=== PATIENT | male | born 1945 | race Caucasian/White ===

== ENCOUNTER → 2016-12-12 15:37 | Outpatient (CLI) | payer MEDICARE, OTHER ==
[~2016-12-12 15:37] MED LIST: BAYER CHEWABLE81 MG PO; ISOSORBIDE MONO30 M1 PO; KRILL OIL 1,001 EAC1 PO; LOPRESSOR25 MG PO; NORVASC5 MG PO; OMEPRAZOLE20 M1 PO; PLAVIX75 MG PO; ZOCOR40 MG PO
[2016-12-14 10:17] LABS: HEPATITIS C ANTIBODY <0.1 (0.0-0.9)
[2016-12-25 08:30] VITALS: BMI 35.3
== END | disposition home or self-care (01) ==
LOC: D.LAB 15:30 → D.US 16:00
PROVIDERS: Internal Medicine Cardiovascular Disease
DX: Z01.812 Encounter for preprocedural laboratory examination (principal); R01.1 Cardiac murmur, unspecified; I65.23 Occlusion and stenosis of bilateral carotid arteries

== ENCOUNTER 2016-12-18 07:50 | Outpatient (CLI) | payer MEDICARE, OTHER ==
--- NOTE | ~2016-12-18 | HEMODYNAMI ---
PATIENT:JOSE FERREIRA MEDICAL RECORD: [id number] : 47 LOCATION:D.CAT ADMISSION DATE: 12/18/16 Generatedon:12/18/201610:58 Patient name: JOSE FERREIRA Patient #: [id number] SSN: : 1945 Date of study: 12/18/2016 Page: Of Hemodynamic Procedure Report Patient Data Patient Demographics Procedure consent was obtained First Name: JOSE Gender: Male Last Name: HANNA : 1945 [facility] Initial: TERESA Age: 71 year(s) Patient #: [id number] Race: Unknown Additional ID: [id number] Contact details [address]: [address] [place] [address] State: [place] City: [place] Zip code: [address] Past Medical History Allergies Allergen Reaction Date Comments Reported Other allergy 12/18/2016 [facility] Admission Admission Data Admission Date: 12/18/2016 Admission Time: 7:50 Admit Source: Other Lab Results Lab Result Date: 12/18/2016 Lab Result Time: 8:40 Biochemistry Name Units Result Min Max BUN mg/dl 15 --(--*-)-- 7 18 Creatinine mg/dl 1 --(--*-)-- 0.6 1.3 CBC Name Units Result Min Max Hematocrit % 37.6 *-(----)-- 42 54 Hemoglobin g/dl 13.3 -*(----)-- 13.5 17.5 Procedure Procedure Types Cath Procedure Diagnostic Procedure LHC Coronaries only Miscellaneous Procedures Moderate Sedation up to 15 minutes Procedure Description Procedure Date Procedure Date: 12/18/2016 Procedure Start Time: 10:45 Procedure End Time: 10:56 Procedure Staff Name Function Jerry Wilson MD Performing Physician Valerie Curry RT Scrub Timmy Ayoub RN Nurse Cliff Urbano RT Monitor Procedure Data Cath Procedure Fluoroscopy Diagnostic fluoroscopy Total fluoroscopy Time: 2 time: 2 min min Diagnostic fluoroscopy Total fluoroscopy dose: 747 dose: 747 mGy mGy Contrast Material Contrast Material Type Amount (ml) Isovue 300 59 Entry Location Entry Primary Successful Side Size Upsize Upsize Entry Closure Phillips ccessful Closure Location (Fr) 1 (Fr) 2 (Fr) Remarks Device Remarks Radial Right 6 Fr Mechanical artery Short Compression Estimated blood loss: 5 ml Diagnostic catheters Device Type Used For End Catheter Placement Diagnostic Terumo 5Fr Procedure [place] 110cm catheter Diagnostic Infinity 5Fr Procedure AR 2 MOD catheter Procedure Complications No complications Procedure Medications Medication Administration Route Dosage 0.9% NaCl I.V. 100 ml/hr Oxygen NC 2 l/min Heparin Flush Bag added to field 2 bags (1000units/500ml NS) Lidocaine 2% added to field 20 Versed I.V. 1 mg Fentanyl I.V. 50 mcg Radial Cocktail added to field 1 syringe (Verapomil 2mg/Nitro 400mcg/Heparin 1500units) Radial Cocktail I.A. 1 syringe (Verapomil 2mg/Nitro 400mcg/Heparin 1500units) Hemodynamics Rest HGB: 13.3 (g/dl) Heart Rate: 76 (bpm) Snapshots Pre Cath Intra NCS Post Cath Vital Signs Time Heart Resp SPO2 etCO2 NIBP (mmHg) Rhythm Pain Sedation Rate (ipm) (%) (mmHg) Status Level (bpm) 10:35:26 78 18 96 26.2 125/73(102) NSR 0 (11) 10(A) , No pain 10:40:05 78 16 93 1.5 120/70(95) NSR 0 (11) 10(A) , No pain 10:44:42 77 15 95 10.5 114/68(87) NSR 0 (11) 10(A) , No pain 10:49:18 81 16 92 27.7 105/72(90) NSR 0 (11) 9(A) , No pain 10:54:27 79 14 95 0 107/72(93) NSR 0 (11) 9(A) , No pain Medications Time Medication Route Dose Verified Delivered Reason Notes Effectiveness by by 10:34:18 0.9% NaCl I.V. 100 Timmy Timmy Per ml/hr Anitra Ayoub physician RN RN 10:34:29 Oxygen NC 2 l/min Timmy Timmy Per Anitra Ayoub physician [place] RN 10:34:54 Heparin Flush added 2 bags Timmy Timmy used for Bag to Anitra Ayoub procedure (1000units/500ml field RN RN NS) 10:35:09 Lidocaine 2% added 20ml Timmy Timmy for local to vial Anitra Ayoub anesthetic field RN RN 10:44:41 Versed I.V. 1 mg Timmy Timmy for sedation Anitra Ayoub RN RN 10:44:53 Fentanyl I.V. 50 mcg Timmy Timmy for sedation Anitra Ayoub RN RN 10:45:05 Radial Cocktail added 1 Timmy Timmy for (Verapomil to syringe Anitra Ayoub vasodilation 2mg/Nitro field RN RN 400mcg/Heparin 1500units) 10:48:09 Radial Cocktail I.A. 1 Timmy Jerry for (Verapomil syringe Anitra Wilson MD vasodilation 2mg/Nitro RN 400mcg/Heparin 1500units) Procedure Log Time Note 10::59 Informed consent obtained and on chart 10:09:03 Admit Source: Other 10:09:49 Diagnostic Cath status Elective 10::52 Cliff Urbano RT(R) sent for patient. Start room use. 10::53 Time tracking: Regular hours ::59 Plan of Care:Hemodynamics will remain stable., Cardiac rhythm will remain stable., Comfort level will be maintained., Respiratory function will remain adequate., Patient/ family verbilizes understanding of procedure., Procedure tolerated without complication., Recovers from procedure without complications.. 10:25:52 Patient received from Pre/Post Procedure Room to CCL 1 Alert and oriented. Tansferred to table in Supine position. 10:25:54 Warm blankets applied, and cesar hugger turned on for patient comfort. 10:25:54 Correct patient and procedure confirmed by team. 10:25:56 ECG and BP/O2 sat monitors applied to patient. 10:34:18 0.9% NaCl 100 ml/hr I.V. was administered by Timmy Ayoub RN; Per physician; 10:34:29 Oxygen 2 l/min NC was administered by Timmy Ayoub RN; Per physician; 10:34:37 Vital chart was started 10:34:54 Heparin Flush Bag (1000units/500ml NS) 2 bags added to field was administered by Timmy Ayoub RN; used for procedure; 10:35:09 Lidocaine 2% 20ml vial added to field was administered by Timmy Ayoub RN; for local anesthetic; 10:39:48 Baseline sample Acquired. 10:39:52 Rhythm: sinus rhythm 10:40:04 H&P Date Dictated: 12/18/2016 New H&P dictated by physician.. 10:40:06 Pre-procedure instructions explained to patient. 10:40:06 Pre-op teaching completed and patient verbalized understanding. 10:40:08 Family in waiting room. 10:40:09 Patient NPO since Midnight. 10:40:18 Patient allergic to Other allergyniacin 10:40:20 Is the patient allergic to Iodine/contrast media? No. 10:40:21 Is patient on blood thinner?No 10:40:22 Patient diabetic? No. 10:40:25 Previous problem with sedation/anesthesia? No ? 10:40:26 Snore? Yes 10:40:27 Sleep apnea? Yes 10:40:28 Deviated septum? No 10:40:29 Opens mouth fully? Yes 10:40:31 Sticks out tongue? Yes 10:40:35 Airway obstruction? No ? 10:40:37 Dentures? No ? 10:40:40 Modified Sukumar's test Ulnar < 7 seconds 10:40:42 Patient pain scale 0/10 ?. 10:40:47 IV patent on arrival in left hand with 0.9% NaCl at [facility]. 10:41:23 Lab Result : Creatinine 1 mg/dl 10:41:23 Lab Result : BUN 15 mg/dl 10:41:23 Lab Result : Hemoglobin 13.3 g/dl 10:41:23 Lab Result : Hematocrit 37.6 % 10:41:26 Lab results completed and on chart. 10:41:28 Right Radial & Right Groin area was prepped with chlora-prep and draped in sterile fashion 10:41:29 Alarms reviewed by R. N. 10:41:30 Sharps counted by scrub and verified by R.N. 10:41:32 Use device set Radial Dx 10:41:33 MBrace Wrist Support opened to sterile field. 10:41:34 Acist Manifold opened to sterile field. 10:41:34 Acist Hand Control opened to sterile field. 10:41:35 Tegaderm 4 x 4 opened to sterile field. 10:41:36 Acist Syringe opened to sterile field. 10:41:36 Medline Cath Pack opened to sterile field. 10:41:36 Bag Decanter opened to sterile field. 10:41:37 Terumo 6Fr Slender Glidesheath opened to sterile field. 10:41:37 St Jason 260cm J .035 wire opened to sterile field. 10:41:43 Physician arrived 10::44 --------ALL STOP TIME OUT------ 10::44 Final Timeout: patient, procedure, and site verified with staff and physician. All members of the team are in agreement. 10::44 Final Timeout: patient, procedure, and site verified with staff and physician. All members of the team are in agreement. 10:41:46 Right Radial & Right Groin site verified by team. 10:41:49 Physical assessment completed. ASA score P 2 - A patient with mild systemic disease as per Jerry Wilson MD. 10:41:52 Sedation plan: IV Moderate Sedation Versed, Fentanyl 10:43:52 Zero performed for pressure channel P1 10:44:41 Versed 1 mg I.V. was administered by Timmy Ayoub RN; for sedation; 10:44:53 Fentanyl 50 mcg I.V. was administered by Timmy Ayoub RN; for sedation; 10:45:05 Radial Cocktail (Verapomil 2mg/Nitro 400mcg/Heparin 1500units) 1 syringe added to field was administered by Timmy Ayoub RN; for vasodilation; 10:45:45 Procedure started. 10:45:45 Full Disclosure recording started 10:45:56 Local anesthetic to right radial artery with Lidocaine 2% by Jerry Wilson MD.INITIAL ACCESS ONLY 10:46:06 A 6 Fr Short sheath was inserted into the Right Radial artery 10:47:37 A Diagnostic Terumo 5Fr [place] 110cm catheter was advanced over the wire and used for Procedure. 10:48:09 Radial Cocktail (Verapomil 2mg/Nitro 400mcg/Heparin 1500units) 1 syringe I.A. was administered by Jerry Wilson MD; for vasodilation; 10:48:20 LCA angiography performed. 10:50:23 Catheter exchanged over wire. 10:50:35 A Diagnostic Infinity 5Fr AR 2 MOD catheter was advanced over the wire and used for Procedure. 10:51:58 RCA angiography performed. 10:52:23 Catheter removed. 10:52:41 Terumo TR Band Standard opened to sterile field. 10:52:49 Sheath removed intact; hemostasis achieved with Mechanical Compression to the Right Radial artery. 10:52:51 Procedure ended.(Physican Out) 10:53:47 Fluoroscopy time 02.00 minutes. 10:53:50 Fluoroscopy dose: 747 mGy 10:53:50 Flurop Dose total: 747 10:53:55 Contrast amount:Isovue 300 59ml. 10:53:56 Sharps counted by scrub and verified by R.N. 10:53:59 TR band inflated with 9cc of air. 10:54:01 Insertion/operative site no bleeding no hematoma. 10:54:05 Post Procedure Pulses reassessed and unchanged 10:54:07 Post-procedure physical assessment completed. ASA score P 2 - A patient with mild systemic disease as per Jerry Wilson MD. 10:54:10 Post procedure rhythm: unchanged. 10:54:15 Estimated blood loss: 5 ml 10:54:17 Post procedure instruction explained to patient.Patient verbalizes understanding. 10:54:17 Patient needs reinforcement of post procedure teaching. 10:54:32 Procedure type changed to Cath procedure, Diagnostic procedure, LHC, Coronaries only, Miscellaneous Procedures, Moderate Sedation up to 15 minutes 10:56:25 Procedure and supply charges have been captured, reviewed, submitted and are correct. 10:56:27 Procedure Complication : No complications 10:56:30 Vital chart was stopped 10:56:31 See physician's report for complete and final results. 10:56:32 Report given to Pre/Post Procedure Room. 10:56:35 Patient transfered to Pre/Post Procedure Room with Stretcher. 10:56:37 Procedure ended. 10:56:37 Full Disclosure recording stopped 10:56:43 End room use (Document Last) Device Usage Item Name Manufacture Quantity Catalog Hospital Part Current Minimal Lot# / Number Charge Number Stock Stock Serial# Code [facility] 1 140-0250-00 213241 97500 [id number] 5 Wrist Vascular Support Dynamics Acist Acist 1 87334 [id number] 000154 [id number] 5 [employer] Inc Acist Hand Acist 1 21401 239074 622927 792928 5 Virtual Solutions Tegaderm 4 1 [id number] 272938 166248 5 x 4 Acist Acist 1 38199 842866 470816 615566 20 Syringe [employer] Inc Medline Cardinal 1 [id number] 991322 00822 694302 5 Cath Pack Health Bag Microtek 1 2002S 651767 80940 818739 5 [employer]an[employer] Terumo 6Fr Terumo 1 [id number] 796415 832585 105975 [address] [facility] 1 868716 552641 956415 419581 30 260cm J .035 wire Diagnostic Terumo 1 [id number] 756788 055295 713765 5 Terumo 5Fr [place] 110cm catheter Diagnostic Cardinal 1 [id number] 586698 557639 067391 20 [facility] 5Fr AR 2 MOD catheter Terumo TR Terumo 1 [id number] 234931 180639 047663 40 Band Standard Signature Audit [place] Stage Time Signature Unsigned Intra-Procedure 12/18/2016 Cliff Urbano 10:58:42 AM RT(R) Signatures Monitor : Cliff Urbano RT Signature : Date : Time : [id number] [place] [address]
[2016-12-18] MEDS ORDERED: ISOSORBIDE MONO30 M1 PO (08:34)
[2016-12-18] MEDS ORDERED: LOPRESSOR25 MG PO (08:35)
[2016-12-18] MEDS ORDERED: ZOCOR40 MG PO (08:35)
[2016-12-18] MEDS ORDERED: NORVASC5 MG PO (08:36)
[2016-12-18] MEDS ORDERED: OMEPRAZOLE20 M1 PO (08:37)
[2016-12-18] MEDS ORDERED: KRILL OIL 1,001 EAC1 PO (08:38)
[2016-12-18 08:45] VITALS: BP 117/80; BMI 35.3
[2016-12-18 08:53] LABS: HEMATOCRIT 37.6 % (42.0-54.0); HEMOGLOBIN 13.3 g/dL (13.5-17.5); LYMPHOCYTES 29.6 % (15-50); MCH 30.6 pg (26.0-34.0); MCHC 35.4 g/dL (31.0-37.0); MCV 86.4 fL (80.0-100.0); MEAN PLATELET VOLUME 8.4 fL (7.4-10.4); NEUTROPHILS 66.2 % (40-80); PLATELET COUNT 182 10x3/uL (130-400); RBC 4.35 10x6/uL (4.20-6.10); RDW 13.8 % (11.5-14.5)
[2016-12-18 09:03] LABS: CALC OSMOLALITY 279 mosm/kg (275-300); CALCIUM 9.2 mg/dL (8.5-10.1); CARBON DIOXIDE 24.3 mmol/L (21.0-32.0); CHLORIDE - SERUM 105 mmol/L (98-107); GLUCOSE 109 mg/dL (74-106); POTASSIUM - SERUM 3.6 mmol/L (3.5-5.1); SODIUM 139 mmol/L (136-145); UREA NITROGEN 15 mg/dL (7-18); eGFR NON AFRICAN AMERICAN 78 mL/min (90-120)
--- NOTE | 2016-12-18 11:20 | NUR ---
2L NC, NO RESP DISTRESS. RIGHT WRIST TR BAND CDI, NO BLEEDING OR HEMATOMA NOTED. NO C/O NAUSEA OR PAIN. INSTRUCTED PT TO KEEP WRIST STRAIGHT. VSS. FAMILY AT BEDSIDE, CALL LIGHT WITHIN REACH.
--- NOTE | 2016-12-18 11:50 | NUR ---
RIGHT WRIST TR BAND CDI, NO BLEEDING OR HEMATOMA NOTED. NO C/O NAUSEA OR PAIN. 2L NC, NO RESP DISTRESS. DRINK AND SANDWICH TRAY GIVEN. VSS. WILL CONTINUE TO MONITOR CLOSELY.
--- NOTE | 2016-12-18 12:05 | NUR ---
3CC OF AIR REMOVED FROM TR BAND, NO BLEEDING NOTED. NO C/O AT THIS TMIE. VSS. FAMILY AT BEDSIDE, CALL LIGHT WITHIN REACH.
--- NOTE | 2016-12-18 12:20 | NUR ---
3CC OF AIR REMOVED FROM TR BAND, NO BLEEDING NOTED.
--- NOTE | 2016-12-18 12:40 | NUR ---
2CC OF AIR REMOVED FROM TR BAND, NO BLEEDING NOTED. LEFT HAND PIV D/C'D WITH CATHETER INTACT, BAND AID TO SITE.
--- NOTE | 2016-12-18 12:48 | NUR ---
REMAINING AIR REMOVED FROM TR BAND, DRESSING PLACED TO SITE. DISCHARGE INSTRUCTIONS GIVEN, VERBALIZED UNDERSTANDING.
--- NOTE | 2016-12-18 13:00 | NUR ---
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 LEFT FACILITY WITH AND ALL PERSONAL BELONGINGS.
--- NOTE | 2016-12-29 14:14 | HP ---
PATIENT: JOSE DOMINGUEZ MEDICAL RECORD: [id number] ACCOUNT: [id number] LOCATION:IZAIAH : 47 ADMISSION DATE: 12/18/16 HISTORY AND PHYSICAL EXAMINATION DATE OF SERVICE: 12/18/2016 DIAGNOSES: 1. Angina. 2. Coronary artery disease. 3. Aortic stenosis. 4. Hypertension. 5. Hyperlipidemia. HISTORY OF PRESENT ILLNESS: Mr. Dominguez had progressive aortic stenosis, very symptomatic from the standpoint of the aortic stenosis, now for aortic valve replacement. We will proceed with cardiac catheterization prior to valve replacement for assessment of coronary artery disease. PHYSICAL EXAMINATION: GENERAL APPEARANCE: Well-nourished, well-developed, appears stated age. Level of distress, comfortable. PSYCHIATRIC: Mental status, alert, normal affect. Orientation, oriented to time, place and person. EYES: Lids and conjunctiva, noninjected. No discharge, no pallor. ENT: Lips, teeth, gums, normal dentition. Oropharynx, no cyanosis, no pallor. NECK: Carotid arteries, bilateral normal upstroke, no bruits, no thrills. JUGULAR VEINS: No jugular venous pressure or distention. CERVICAL LYMPH NODES: Nontender, nonenlarged. THYROID: Not enlarged. Nontender. No nodules. LUNGS: Respiratory effort, unlabored. CHEST: Normal curvature. No thoracic deformity. No chest wall tenderness. Percussion, resonant. Auscultation, clear. No wheezes, no rales, no rhonchi. CARDIOVASCULAR: Precordial exam, nondisplaced. No heaves or pericardial thrills. Rate and rhythm, regular. Heart sounds, normal S1, normal S2. No S3, no gallop, no rub. Systolic murmur, not heard. Diastolic murmur, not heard. EXTREMITIES: No cyanosis, no edema. Peripheral pulses, full and equal in all extremities, except as noted. No bruits appreciated. ABDOMEN: Soft, nondistended. Normal aorta. No bruit. Nontender. No masses. Liver, nontender, no hepatomegaly. Spleen, nontender, no splenomegaly. MUSCULOSKELETAL: No joint tenderness. No joint swelling. No erythema. NEUROLOGICAL: Normal gait, normal strength, normal tone. SKIN: Warm and dry. REVIEW OF SYSTEMS: The patient reports easy bruising but reports no swollen glands. The patient reports no fever, no night sweats, no significant weight gain, no significant weight loss. No significant exercise tolerance. The patient reports no dry eyes, no irritation, no vision change. Patient reports no difficulty hearing and no ear pain. Patient reports no frequent nose bleeds or nose and sinus problems. Patient reports on arm pain on exertion. No shortness of breath while lying down. No history of heart murmur. Patient reports no cough, no wheezing or coughing up blood. Patient reports no abdominal pain, no vomiting. Normal appetite. No diarrhea and not vomiting blood. No nausea and no constipation. Patient reports no incontinence. No difficulty urinating. No hematuria. No increased frequency. Patient reports HISTORY AND PHYSICAL [id number] JOSE DOMINGUEZ no muscle aches. No weakness, no arthralgias, no back pain. No swelling of the extremities. Patient reports no abnormal mole, no jaundice, no rashes. Reports no loss of consciousness. No weakness and no numbness. No seizures, dizziness, or headaches. The patient reports no depression, no sleep disturbance, feeling safe in a relationship and no alcohol abuse. Patient reports on fatigue. Reports no runny nose or sinus pressure. No itching, no hives, and no frequent sneezing. OVERALL IMPRESSION: Aortic stenosis for aortic valve replacement. We will proceed with coronary angiography. TRANSINT:[id number] Voice Confirmation ID: [id number] DOCUMENT ID: [id number] JUAN M REYNAGA MD at 1414 CC: [id number] DICTATION DATE: 12/18/16 1000 LOCK TENDER: 12/18/16 1033 [facility] CLI 12/18/16 [place] [id number]
--- NOTE | 2016-12-29 14:14 | OP ---
PATIENT NAME: JOSE FERREIRA MEDICAL RECORD: [id number] :47 LOCATION:D.CAT ADMISSION DATE: SURGEON: JUAN M REYNAGA MD DATE OF OPERATION: 12/18/2016 PROCEDURES: 1. Left heart catheterization. 2. Selective coronary angiography. INDICATION: Aortic stenosis for aortic valve replacement, coronary artery disease, and angina. PROCEDURE IN DETAIL: After informed consent was obtained and after detailed explanation of risks, benefits as well as alternative therapies, the patient elected to proceed with angiogram and heart catheterization. The right radial area was prepped and draped in normal sterile fashion. Right radial artery was cannulated via modified Seldinger technique with placement of 5-Turkish sheath. All catheters were exchanged through this sheath. FINDINGS: Left ventriculogram was not performed secondary to inability to cross the valve secondary to aortic stenosis. SELECTIVE CORONARY ANGIOGRAPHY: 1. Left main showed no significant angiographic disease. 2. Left anterior descending has 80% stenosis proximally. Previously placed stents are widely patent. There is an area between the stents suitable for grafting. 3. Left circumflex has 80+ percent stenosis of the first and second obtuse marginals, both have good lumen suitable for grafting. 4. Right coronary is totally occluded. Distal right coronary fills via right to right collaterals. Distal right coronary has a good lumen suitable for grafting. OVERALL IMPRESSION: Severe 3-vessel coronary artery disease. Evaluate for 3 to 4 vessel bypass. TRANSINT:[id number] Voice Confirmation ID: [id number] DOCUMENT ID: [id number] JUAN M REYNAGA MD at 1414 CC: [id number] DICTATION DATE: 12/18/16 1058 PROGRAM DIRECTOR GROUP WORK: 12/18/16 1143 [facility] CLI 12/18/16 [place] [id number]
== END 2016-12-18 13:00 | disposition home or self-care (01) ==
LOC: D.CATH 07:50
PROVIDERS: Internal Medicine Interventional Cardiology
DX: I25.119 Atherosclerotic heart disease of native coronary artery with unspecified angina pectoris (principal); I35.0 Nonrheumatic aortic (valve) stenosis; I10 Essential (primary) hypertension; E78.5 Hyperlipidemia, unspecified; Z01.812 Encounter for preprocedural laboratory examination

== ENCOUNTER 2016-12-22 08:02 | Outpatient (CLI) | payer MEDICARE, OTHER ==
--- NOTE | ~2016-12-22 | HEMODYNAMI ---
PATIENT:JOSE FERREIRA MEDICAL RECORD: [id number] : 47 LOCATION:[facility] ADMISSION DATE: 12/22/16 Generatedon:12/22/201610:21 Patient name: JOSE FERREIRA Patient #: [id number] SSN: : 1945 Date of study: 12/22/2016 Page: Of Hemodynamic Procedure Report Patient Data Patient Demographics Procedure consent was obtained First Name: JOSE Gender: Male Last Name: HANNA : 1945 [facility] Initial: TERESA Age: 71 year(s) Patient #: [id number] Race: Unknown Additional ID: [id number] Contact details Address: [address] [place] [address] State: [place] City: [place] Zip code: [address] Past Medical History Allergies Allergen Reaction Date Comments Reported Other allergy 12/18/2016 niacin Other allergy 12/22/2016 Niacin Admission Admission Data Admission Date: 12/22/2016 Admission Time: 8:02 Lab Results Lab Result Date: 12/18/2016 Lab Result Time: 8:40 Biochemistry Name Units Result Min Max BUN mg/dl 15 --(--*-)-- 7 18 Creatinine mg/dl 1 --(--*-)-- 0.6 1.3 CBC Name Units Result Min Max Hematocrit % 37.6 *-(----)-- 42 54 Hemoglobin g/dl 13.3 -*(----)-- 13.5 17.5 Procedure Procedure Types Cath Procedure PCI Procedure Coronary Stent Initial Miscellaneous Procedures Moderate Sedation up to 15 minutes Procedure Description Procedure Date Procedure Date: 12/22/2016 Procedure Start Time: 10:07 Procedure End Time: 10:21 Procedure Staff Name Function Jerry Wilson MD Performing Physician Cliff Urbano RT Scrub Timmy Ayoub RN Nurse Jed Joseph RT Monitor Valerie Curry RT Monitor Procedure Data Cath Procedure Fluoroscopy Diagnostic fluoroscopy Total fluoroscopy Time: 3.2 time: 3.2 min min Diagnostic fluoroscopy Total fluoroscopy dose: 397 dose: 397 mGy mGy Contrast Material Contrast Material Type Amount (ml) Isovue 300 53 Entry Location Entry Primary Successful Side Size Upsize Upsize Entry Closure Succes sful Closure Location (Fr) 1 (Fr) 2 (Fr) Remarks Device Remarks Femoral Right 7 Fr Exoseal artery Short Estimated blood loss: 10 ml Procedure Complications No complications Procedure Medications Medication Administration Route Dosage 0.9% NaCl I.V. 100 ml/hr Oxygen NC 2 l/min Heparin Flush Bag added to field 2 bags (1000units/500ml NS) Lidocaine 2% added to field 20 Versed I.V. 1 mg Fentanyl I.V. 50 mcg Heparin Bolus I.V. 5000 units Hemodynamics Rest HGB: 13.3 (g/dl) Heart Rate: 75 (bpm) Snapshots Pre Cath Intra NCS Post Cath Vital Signs Time Heart Resp SPO2 etCO2 NIBP (mmHg) Rhythm Pain Sedation Rate (ipm) (%) (mmHg) Status Level (bpm) 9:41:05 77 17 95 5.3 129/82(99) NSR 0 (11) 10(A) , No pain 9:45:41 80 14 98 21.2 129/88(103) NSR 0 (11) 10(A) , No pain 9:50:18 77 13 95 20.4 125/77(110) NSR 0 (11) 10(A) , No pain 9:54:52 79 18 96 0 127/81(103) NSR 0 (11) 10(A) , No pain 9:59:27 76 16 95 29.6 125/80(101) NSR 0 (11) 10(A) , No pain 10:04:06 81 18 96 6 124/80(93) NSR 0 (11) 10(A) , No pain 10:08:44 80 16 97 0 127/70(108) NSR 0 (11) 9(A) , No pain 10:13:22 80 15 97 0 128/75(96) NSR 0 (11) 9(A) , No pain 10:18:01 71 16 96 29.6 123/83(109) NSR 0 (11) 9(A) , No pain Medications Time Medication Route Dose Verified Delivered Reason Notes Effectiveness by by 9:43:41 0.9% NaCl I.V. 100 Timmy Timmy Per physician ml/hr Anitra Ayoub RN RN 9:43:57 Oxygen NC 2 Timmy Timmy Per physician l/min Anitra Ayoub RN RN 9:44:14 Heparin Flush added 2 Timmy Timmy used for Bag to bags Anitra Ayoub procedure (1000units/500ml field RN RN NS) 9:44:36 Lidocaine 2% added 20ml Timmy Timmy for local to vial Anitra Ayoub anesthetic field RN RN 10:00:00 Versed I.V. 1 mg Timmy Timmy for sedation Anitra Ayoub RN RN 10:00:16 Fentanyl I.V. 50 Timmy Timmy for sedation mcg Anitra Ayoub RN RN 10:09:50 Heparin Bolus I.V. 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 Start room use. 9:29:34 Time tracking: Regular hours 9:29:39 Plan of Care:Hemodynamics will remain stable., Cardiac rhythm will remain stable., Comfort level will be maintained., Respiratory function will remain adequate., Patient/ family verbilizes understanding of procedure., Procedure tolerated without complication., Recovers from procedure without complications.. 9:36:28 Patient received from Pre/Post Procedure Room to CCL 1 Alert and oriented. Tansferred to table in Supine position. 9:36:33 Warm blankets applied, and cesar hugger turned on for patient comfort. 9:36:34 Correct patient and procedure confirmed by team. 9:36:35 Signed procedure consent form obtained from patient. 9:36:36 ECG and BP/O2 sat monitors applied to patient. 9:40:16 Vital chart was started 9:43:41 0.9% NaCl 100 ml/hr I.V. was administered by Timmy Ayoub RN; Per physician; 9:43:50 Baseline sample Acquired. 9:43:57 Oxygen 2 l/min NC was administered by Timmy Ayoub RN; Per physician; 9:44:11 Rhythm: sinus rhythm 9:44:12 Full Disclosure recording started 9:44:14 Heparin Flush Bag (1000units/500ml NS) 2 bags added to field was administered by Timmy Ayoub RN; used for procedure; 9:44:32 H&P Date Dictated: 12/22/2016 Within 30 days and on chart., H&P Addendum completed by physician on day of procedure. (MUST COMPLETE FOR ALL OUTPATIENTS). 9:44:34 Pre-procedure instructions explained to patient. 9:44:35 Pre-op teaching completed and patient verbalized understanding. 9:44:36 Lidocaine 2% 20ml vial added to field was administered by Timmy Ayoub RN; for local anesthetic; 9:44:37 Family in waiting room. 9:44:39 Patient NPO since Midnight. 9:44:51 Patient allergic to Other allergyNiacin 9:44:55 Is the patient allergic to Iodine/contrast media? No. 9:44:58 Is patient on blood thinner?Yes 9:45:01 ACC The patient was administered the following blood thiners within the last 24 hours: ACCPlavix 9:45:03 Patient diabetic? No. 9:45:07 Previous problem with sedation/anesthesia? No ? 9:45:09 Snore? Yes 9:45:11 Sleep apnea? No 9:45:12 Deviated septum? No 9:45:14 Opens mouth fully? Yes 9:45:14 Sticks out tongue? Yes 9:45:17 Airway obstruction? No ? 9:45:19 Dentures? No ? 9:45:23 Pre procedure: right dorsailis pedis pulse 1+ Palpable, but thready & weak; easily obliterated 9:45:26 Patient pain scale 0/10 ?. 9:45:34 IV patent on arrival in left hand with 0.9% NaCl at O. 9:45:55 Lab results completed and on chart. 9:46:00 Right groin area was prepped with chlora-prep and draped in sterile fashion 9:46:01 Alarms reviewed by R. N. 9:46:02 Sharps counted by scrub and verified by R.N. 9:47:22 Use device set Femoral PCI 9:47:24 Acist Syringe opened to sterile field. 9:47:27 Acist Hand Control opened to sterile field. 9:47:28 Acist Manifold opened to sterile field. 9:47:28 Tegaderm 4 x 4 opened to sterile field. 9:47:29 Bag Decanter opened to sterile field. 9:47:30 Medline Cath Pack opened to sterile field. 9:47:31 St Jason 260cm J .035 wire opened to sterile field. 9:47:32 [email or web address] BasixCompak Inflation Kit opened to sterile field. 9:53:34 Baseline sample Acquired. 9:53:44 Baseline sample Acquired. 9:55:06 Zero performed for pressure channel P1 9:55:19 Zero performed for pressure channel P1 9:55:43 Zero performed for pressure channel P1 9:59:34 --------ALL STOP TIME OUT------ 9:59:34 Final Timeout: patient, procedure, and site verified with staff and physician. All members of the team are in agreement. 9:59:38 Right groin site verified by team. 9:59:42 Physical assessment completed. ASA score P 2 - A patient with mild systemic disease as per Jerry Wilson MD. 9:59:46 Sedation plan: IV Moderate Sedation Versed, Fentanyl 10:00:00 Versed 1 mg I.V. was administered by Timmy Ayoub RN; for sedation; 10:00:16 Fentanyl 50 mcg I.V. was administered by Timmy Ayoub RN; for sedation; 10:07:11 Procedure started. 10:07:26 Local anesthetic to right femoral artery with Lidocaine 2% by Jerry Wilson MD.INITIAL ACCESS ONLY 10:08:04 [facility] Prelude Femoral Sheath (NO COST SUPPLY) opened to sterile field. 10:08:15 Stratford Sci Choice PT Extra Support J 300cm .014 gu opened to sterile field. 10:08:32 Medtronic Launcher 7Fr EBU 3.5 SH guide catheter opened to sterile field. 10:08:49 A 7 Fr Short sheath was inserted into the Right Femoral artery 10:09:03 7 Fr EBU 3.5 SH guide catheter was inserted over the wire 10:09:14 CHOICE PT ES wire advanced. 10:09:50 Heparin Bolus 5000 units I.V. was administered by Timmy Ayoub RN; for anticoagulation; 10:12:25 Wire advanced across lesion. 10:12:55 Inflation number: 1 A Stratford Sci [place] 3.5 X 20 balloon was prepped and advanced across the Prox CX, then inflated to 17 ARMANDO for 0:10 (min:sec). 10:13:30 Inflation number: 2 The Stratford Sci [place] 3.5 X 20 balloon was reinflated across the Prox CX, to 19 ARMANDO for 0:00 (min:sec). 10:13:57 Balloon removed over the wire. 10:15:41 Inflation Number: 3 A Rene OTW 3.5 x 22 stent was prepped and advanced across the Prox CX. The stent was deployed at 19 ARMANDO for 0:10 (min:sec). 10:16:11 Stent catheter was removed intact over wire. 10:16:13 Wire removed. 10:16:14 Guide catheter removed. 10:16:43 Cordis 7Fr Exoseal opened to sterile field. 10:16:53 Sheath removed intact; hemostasis achieved with Exoseal to the Right Femoral artery. 10:16:56 Procedure ended.(Physican Out) 10:17:01 Fluoroscopy time 03.20 minutes. 10:17:05 Flurop Dose total: 397 10:17:05 Fluoroscopy dose: 397 mGy 10:17:09 Contrast amount:Isovue 300 53ml. 10:17:11 Sharps counted by scrub and verified by R.N. 10:18:03 Post-op/insertion site Right Femoral artery dressed using a 4 x 4 and Tegaderm. 10:18:10 Post procedure: right dorsailis pedis pulse 1+ Palpable, but thready & weak; easily obliterated. 10:18:13 Post-procedure physical assessment completed. ASA score P 2 - A patient with mild systemic disease as per Jerry Wilson MD. 10:18:16 Post procedure rhythm: unchanged. 10:18:18 Estimated blood loss: 10 ml 10:18:20 Post procedure instruction explained to patient.Patient verbalizes understanding. 10:18:20 Patient needs reinforcement of post procedure teaching. 10:18:49 Procedure type changed to Cath procedure, PCI procedure, Coronary Stent Initial, Miscellaneous Procedures, Moderate Sedation up to 15 minutes 10:20:44 Procedure and supply charges have been captured, reviewed, submitted and are correct. 10:20:46 Procedure Complication : No complications 10:20:48 Vital chart was stopped 10:20:49 See physician's report for complete and final results. 10:20:53 Report given to Pre/Post Procedure Room. 10:20:59 Patient transfered to Pre/Post Procedure Room with Bed. 10:21:02 Procedure ended. 10:21:02 Full Disclosure recording stopped 10:21:05 End room use (Document Last) Intervention Summary Intervention Notes Time ActionType Lesion and Equipment Action# Pressure Duration Attributes Used 10:12:55 Inflate Prox CX Stratford 1 17 00:10 balloon Sci [place]inchester 3.5 X 20 balloon 10:13:30 Reinflate Prox CX Stratford 2 19 00:00 balloon Sci [place]ster 3.5 X 20 balloon 10:15:41 [address] stent Prox CX Rene OTW 3 19 00:10 3.5 x 22 stent Device Usage Item Name Manufacture Quantity Catalog Number Hospital Part Current Min imal Lot# / Charge Number Stock Stock Serial# Code Acist Acist 1 28685 220562 968169 [id number] 20 Syringe Medical Systems Inc Acist Hand Acist 1 59755 460203 213032 132166 5 Control Medical Systems Inc Acist Acist 1 18889 488022 161546 534946 5 Manifold Medical Systems Inc Tegaderm 4 3M 1 1626W 268166 330974 718921 5 x 4 Bag Microtek 1 2002S 062151 49362 712093 5 Fugate.cl. Medline Cardinal 1 [id number] 007463 96581 455130 5 Cath [facility] St Jason 1 [id number] 358873 611409 039638 30 260cm J .035 wire Merit Merit 1 [id number] 637469 568206 503931 15 Venture Incite Medical Inflation Kit Merit Merit 1 277767 514236 5 Prelude Medical Femoral Sheath (NO COST SUPPLY) Stratford Sci Stratford 1 [id number] 212651 123194 989428 5 Choice PT Scientific Extra Support J 300cm .014 gu Medtronic Medtronic 1 [id number] 222788 731056 294088 0 Launcher 7Fr EBU 3.5 SH guide catheter Stratford Sci Stratford 1 [id number] 959458 722576 241981 1 [id number] [place]inchester Scientific 3.5 X 20 balloon Rene OTW Medtronic 1 [id number] 989524 9217483 859585 5 [id number] 3.5 x 22 stent Cordis 7Fr Cardinal 1 [id number] 599475 651818 314787 5 [employer] Signature Audit [place] Stage Time Signature Unsigned Intra-Procedure 12/22/2016 Valerie Curry 10:21:25 AM RT(R) Signatures Monitor : Jed Opal RT Signature : Date : Time : Monitor : Valerie Curry Signature : RT Date : Time : [address] [place] [address]
[~2016-12-22 08:02] MED LIST changes: -BAYER CHEWABLE81 MG PO; -PLAVIX75 MG PO
[2016-12-22] MEDS ORDERED: PLAVIX75 MG PO (08:32)
[2016-12-22 08:38] VITALS: BP 133/80; BMI 35.3
[2016-12-22 08:50] LABS: BASOPHILS 0.4 % (0-2); EOSINOPHILS 5.7 % (0-7); HEMATOCRIT 39.6 % (42.0-54.0); HEMOGLOBIN 13.9 g/dL (13.5-17.5); IMMATURE GRANULOCYTES 0.3 % (0-5); LYMPHOCYTES 27.6 % (15-50); MCH 31.2 pg (26.0-34.0); MCHC 35.1 g/dL (31.0-37.0); MCV 88.8 fL (80.0-100.0); MONOCYTES 7.3 % (2-11); NEUTROPHILS 58.7 % (40-80); PLATELET COUNT 171 10x3/uL (130-400); RBC 4.46 10x6/uL (4.20-6.10); RDW 13.6 % (11.5-14.5); WBC 7.3 10x3/uL (4.8-10.8)
[2016-12-22 08:57] LABS: CALC OSMOLALITY 278 mosm/kg (275-300); CALCIUM 9.1 mg/dL (8.5-10.1); CARBON DIOXIDE 22.4 mmol/L (21.0-32.0); CHLORIDE - SERUM 105 mmol/L (98-107); CREATININE - SERUM 0.8 mg/dL (0.6-1.3); GLUCOSE 111 mg/dL (74-106); POTASSIUM - SERUM 4.2 mmol/L (3.5-5.1); SODIUM 140 mmol/L (136-145); UREA NITROGEN 10 mg/dL (7-18); eGFR NON AFRICAN AMERICAN > 90 mL/min (90-120)
[2016-12-22] MEDS ORDERED: BAYER CHEWABLE81 MG PO (10:27)
--- NOTE | 2016-12-22 10:58 | NUR ---
1045 LYING FLAT, 2L NC IN PLACE WHILE SLEEPING. NSR RATE 74 W NO C/O CHEST PAIN. PULSES PALP X 4. R GROIN 7F EXOSEAL C/D/I W NO HEMATOMA OR BLEEDING. FAMILY AT SIDE.
--- NOTE | 2016-12-22 12:00 | NUR ---
1130 AWAKE, TALKING WITH FAMILY AT BEDSIDE. CONTINUES TO LAY FLAT. EATING TURKEY SANDWICH WITH ASSIST FROM AT BEDSIDE. R GROIN REMAINS C/D/I W NO HEMATOMA OR BLEEDING.
--- NOTE | 2016-12-22 12:09 | NUR ---
DR. REYNAGA AT BEDSIDE TO SPEAK WITH FAMILY REGARDING PROCEDURE.
--- NOTE | 2016-12-22 14:02 | NUR ---
1300 RESTING WITH EYES CLOSED, ROOM AIR. NSR 93 W NO C/O CHEST PAIN. PULSES PALP X 4. R GROIN 7F EXOSEAL C/D/I. 1400 ELEVATED HOB, WILL MONITOR R GROIN FOR BLEEDING. AT SIDE.
--- NOTE | 2016-12-22 14:39 | NUR ---
1425 PIV REMOVED FROM LEFT HAND WITH BANDAID APPLIED. AMBULATED TO BATHROOM TO VOID. R GROIN REMAINS C/D/I W NO HEMATOMA OR BLEEDING. D/C INSTRUCTIONS DISCUSSED WITH PATIENT AND AT BEDSIDE. WHEELED OUT VIA WHEELCHAIR BY CATH TEAM.
--- NOTE | 2016-12-29 14:14 | HP ---
PATIENT: JOSE DOMINGUEZ MEDICAL RECORD: [id number] ACCOUNT: [id number] LOCATION:[facility] : 47 ADMISSION DATE: 12/22/16 HISTORY AND PHYSICAL EXAMINATION DIAGNOSES: 1. Angina. 2. Aortic stenosis. 3. Coronary artery disease. 4. Hypertension. 5. Hyperlipidemia. HISTORY OF PRESENT ILLNESS: Mr. Dominguez presented with anginal symptomatology, shortness of breath, found to have significant aortic stenosis; however, was felt to be a poor candidate for open valve replacement. He had cardiac catheterization revealing 3-vessel coronary artery disease. He is going to be a candidate for TAVR, but we have been asked to transcatheter-revascularize him prior to the TAVR. PHYSICAL EXAMINATION: GENERAL APPEARANCE: Well-nourished, well-developed, appears stated age. Level of distress, comfortable. PSYCHIATRIC: Mental status, alert, normal affect. Orientation, oriented to time, place and person. EYES: Lids and conjunctiva, noninjected. No discharge, no pallor. ENT: Lips, teeth, gums, normal dentition. Oropharynx, no cyanosis, no pallor. NECK: Carotid arteries, bilateral normal upstroke, no bruits, no thrills. JUGULAR VEINS: No jugular venous pressure or distention. CERVICAL LYMPH NODES: Nontender, nonenlarged. THYROID: Not enlarged. Nontender. No nodules. LUNGS: Respiratory effort, unlabored. CHEST: Normal curvature. No thoracic deformity. No chest wall tenderness. Percussion, resonant. Auscultation, clear. No wheezes, no rales, no rhonchi. CARDIOVASCULAR: Precordial exam, nondisplaced. No heaves or pericardial thrills. Rate and rhythm, regular. Heart sounds, normal S1, normal S2. No S3, no gallop, no rub. Systolic murmur, not heard. Diastolic murmur, not heard. EXTREMITIES: No cyanosis, no edema. Peripheral pulses, full and equal in all extremities, except as noted. No bruits appreciated. ABDOMEN: Soft, nondistended. Normal aorta. No bruit. Nontender. No masses. Liver, nontender, no hepatomegaly. Spleen, nontender, no splenomegaly. MUSCULOSKELETAL: No joint tenderness. No joint swelling. No erythema. NEUROLOGICAL: Normal gait, normal strength, normal tone. SKIN: Warm and dry. REVIEW OF SYSTEMS: The patient reports easy bruising but reports no swollen glands. The patient reports no fever, no night sweats, no significant weight gain, no significant weight loss. No significant exercise tolerance. The patient reports no dry eyes, no irritation, no vision change. Patient reports no difficulty hearing and no ear pain. Patient reports no frequent nose bleeds or nose and sinus problems. Patient reports on arm pain on exertion. No shortness of breath while lying down. No history of heart murmur. Patient reports no cough, no wheezing or coughing up blood. Patient reports no abdominal pain, no vomiting. Normal appetite. No diarrhea and not vomiting blood. No nausea and no constipation. Patient reports no incontinence. No difficulty urinating. No hematuria. No increased frequency. Patient reports HISTORY AND PHYSICAL [id number] JOSE DOMINGUEZ no muscle aches. No weakness, no arthralgias, no back pain. No swelling of the extremities. Patient reports no abnormal mole, no jaundice, no rashes. Reports no loss of consciousness. No weakness and no numbness. No seizures, dizziness, or headaches. The patient reports no depression, no sleep disturbance, feeling safe in a relationship and no alcohol abuse. Patient reports on fatigue. Reports no runny nose or sinus pressure. No itching, no hives, and no frequent sneezing. OVERALL IMPRESSION: Chest pain compatible with angina, shortness of breath, aortic stenosis. He will be a candidate for TAVR. We will proceed with percutaneous transluminal coronary angioplasty stent of the LAD and circumflex for transcatheter revascularization and after that he will have a transcatheter valve replacement. TRANSINT:[id number] Voice Confirmation ID: [id number] DOCUMENT ID: [id number] JUAN M REYNAGA MD at 1414 CC: [id number] DICTATION DATE: 12/22/16 1021 FLUMER: 12/22/16 1036 DEP CLI 12/22/16 [address] [place] [address]
--- NOTE | 2016-12-29 14:14 | OP ---
PATIENT NAME: JOSE FERREIRA MEDICAL RECORD: [id number] :47 LOCATION:D.CAT ADMISSION DATE: SURGEON: JUAN M REYNAGA MD DATE OF OPERATION: 12/22/2016 PROCEDURES: 1. PTCA stent left circumflex. 2. Selective coronary angiography. INDICATION: Angina and coronary artery disease. PROCEDURE IN DETAIL: After informed consent was obtained and after detailed explanation of risks, benefits as well as alternative therapies, the patient elected to proceed with angiogram and angioplasty. The right femoral area was prepped and draped in normal sterile fashion. The right femoral artery was cannulated via modified Seldinger technique with placement of 7-Samoan sheath. All catheters exchanged through this sheath. FINDINGS: The left circumflex has 90+ percent stenosis proximally. This was addressed with a 3.5 x 22 mm Rene stent. Result was 0% residual stenosis. OVERALL IMPRESSION: Successful percutaneous transluminal coronary angioplasty stent of the left circumflex going from 90% initial stenosis to 0% residual stenosis. TRANSINT:[id number] Voice Confirmation ID: [id number] DOCUMENT ID: [id number] JUAN M REYNAGA MD at 1414 CC: [id number] DICTATION DATE: 12/22/16 1022 [employer] OPERATOR: 12/22/16 1049 DEP CLI 12/22/[address] [address]
== END 2016-12-22 14:54 | disposition home or self-care (01) ==
LOC: D.CATH 08:02
PROVIDERS: Internal Medicine Interventional Cardiology
DX: I25.119 Atherosclerotic heart disease of native coronary artery with unspecified angina pectoris (principal); I35.0 Nonrheumatic aortic (valve) stenosis; I10 Essential (primary) hypertension; E78.5 Hyperlipidemia, unspecified; Z01.812 Encounter for preprocedural laboratory examination

== ENCOUNTER 2016-12-25 07:47 | Outpatient (CLI) | payer MEDICARE, OTHER ==
[~2016-12-25] VITALS: Ht 170.2 cm; Wt 102.3 kg
--- NOTE | ~2016-12-25 | HEMODYNAMI ---
PATIENT:JOSE FERREIRA MEDICAL RECORD: [id number] : 47 LOCATION:D.CAT ADMISSION DATE: 12/25/16 Generatedon:12/25/201612:27 Patient name: JOSE FERREIRA Patient #: [id number] SSN: : 1945 Date of study: 12/25/2016 Page: Of Hemodynamic Procedure Report Patient Data Patient Demographics Procedure consent was obtained First Name: JOSE Gender: Male Last Name: HANNA : 1945 [facility] Initial: TERESA Age: 71 year(s) Patient #: [id number] Race: Unknown Additional ID: [id number] Contact details Address: [address] [place] [address] State: [place] City: [place] Zip code: [address] Past Medical History Allergies Allergen Reaction Date Comments Reported Other allergy 12/18/2016 niacin Other allergy 12/22/2016 Niacin Other allergy 12/25/2016 niacin Admission Admission Data Admission Date: 12/25/2016 Admission Time: 7:47 Procedure Procedure Types Cath Procedure PCI Procedure Coronary Stent Initial Miscellaneous Procedures Moderate Sedation up to 30 minutes Procedure Description Procedure Date Procedure Date: 12/25/2016 Procedure Start Time: 12:08 Procedure End Time: 12:26 Procedure Staff Name Function Jerry Wilson MD Performing Physician Laura Lebron RT Scrub Parth Gong RN Nurse Cyn Grider RT Monitor Indication Angina Procedure Data Cath Procedure Fluoroscopy Diagnostic fluoroscopy Total fluoroscopy Time: 3.8 time: 3.8 min min Diagnostic fluoroscopy Total fluoroscopy dose: 545 dose: 545 mGy mGy Contrast Material Contrast Material Type Amount (ml) Isovue 300 47 Entry Location Entry Primary Successful Side Size Upsize Upsize Entry Closure Phillips ccessful Closure Location (Fr) 1 (Fr) 2 (Fr) Remarks Device Remarks Femoral Left 5 Fr Manual vein Compression Femoral Left 6 Fr Exoseal artery Short Estimated blood loss: 5 ml Procedure Complications No complications Procedure Medications Medication Administration Route Dosage Oxygen NC 2 l/min Heparin Flush Bag added to field 2 bags (1000units/500ml NS) 0.9% NaCl I.V. 100 ml/hr Fentanyl I.V. 50 mcg Versed I.V. 1 mg Versed I.V. 1 mg Heparin Bolus I.V. 4000 units Fentanyl I.V. 50 mcg Hemodynamics Rest HGB: 13.3 (g/dl) Heart Rate: 67 (bpm) Snapshots Pre Cath Intra NCS Post Cath Vital Signs Time Heart Resp SPO2 etCO2 NIBP (mmHg) Rhythm Pain Sedation Rate (ipm) (%) (mmHg) Status Level (bpm) 11:59:38 88 20 98 0 146/101(121) NSR 0 (11) 10(A) , No pain 12:03:54 85 19 97 32.6 132/92(107) NSR 0 (11) 10(A) , No pain 12:08:08 82 19 94 31.1 121/80(98) NSR 0 (11) 10(A) , No pain 12:12:20 76 18 96 31.8 116/68(102) NSR 0 (11) 9(A) , No pain 12:16:36 81 19 98 18.9 104/69(86) NSR 0 (11) 9(A) , No pain 12:20:43 81 18 98 0 110/73(99) NSR 0 (11) 9(A) , No pain 12:24:53 81 18 98 0 111/77(90) NSR 0 (11) 9(A) , No pain Medications Time Medication Route Dose Verified Delivered Reason Notes Effectiveness by by 12:10:04 Oxygen NC 2 Jerry Montgomery Per physician l/min Steve Calix RN 12:10:55 Heparin Flush added 2 Jerry Montgomery used for Bag to bags Steve Calix communications advisor (1000units/500ml field NS) 12:11:06 0.9% NaCl I.V. 100 Jerry Montgomery Per physician ml/hr Steve Calix RN 12:11:12 Fentanyl I.V. 50 Jerry Montgomery for sedation mcg Steve Calix RN 12:11:18 Versed I.V. 1 mg Jerry Montgomery for sedation Steve Calix RN 12:16:25 Versed I.V. 1 mg Jerry Montgomery for sedation Steve Calix RN 12:17:02 Heparin Bolus I.V. 4000 Jerry Montgomery for units Steve Calix RN anticoagulation 12:23:06 Fentanyl I.V. 50 Jerry Montgomery for sedation [facility] Steve Calix business analysis analyst Log Time Note 11:40:01 Laura Lebron RT(R) sent for patient. Start room use. 11:53:44 Diagnostic Cath Status : Elective 11:53:59 Indication : Angina 11:54:08 Time tracking: Regular hours 11:54:11 Plan of Care:Hemodynamics will remain stable., Cardiac rhythm will remain stable., Comfort level will be maintained., Respiratory function will remain adequate., Patient/ family verbilizes understanding of procedure., Procedure tolerated without complication., Recovers from procedure without complications.. 11:54:17 Patient received from Pre/Post Procedure Room to CCL 2 Alert and oriented. Tansferred to table in Supine position. 11:54:18 Warm blankets applied, and cesar hugger turned on for patient comfort. 11:54:18 Correct patient and procedure confirmed by team. 11:54:19 Signed procedure consent form obtained from patient. 11:54:20 ECG and BP/O2 sat monitors applied to patient. 11:58:28 Baseline sample Acquired. 11:58:28 Vital chart was started 11:58:34 Rhythm: sinus rhythm 11:58:36 Full Disclosure recording started 11:58:41 H&P Date Dictated: 12/25/2016 Within 30 days and on chart., H&P Addendum completed by physician on day of procedure. (MUST COMPLETE FOR ALL OUTPATIENTS). 11:58:42 Pre-procedure instructions explained to patient. 11:58:43 Pre-op teaching completed and patient verbalized understanding. 11:58:44 Family in waiting room. 11:58:46 Patient NPO since Midnight. 11:58:54 Patient allergic to Other allergyniacin 11:58:56 Is the patient allergic to Iodine/contrast media? No. 11:58:57 Was the patient premedicated? No 11:58:58 Is patient on blood thinner?Yes 11:59:00 ACC The patient was administered the following blood thiners within the last 24 hours: ACCPlavix 11:59:02 Patient diabetic? No. 12:00:51 Snore? Yes 12:00:52 Sleep apnea? No 12:00:53 Deviated septum? No 12:00:53 Opens mouth fully? Yes 12:00:54 Sticks out tongue? Yes 12:00:56 Airway obstruction? No ? 12:00:59 Dentures? No ? 12:01:02 Pre procedure: right dorsailis pedis pulse 2+ Normal; easily identifiable; not easily obliterated 12:01:04 Pre procedure: left dorsailis pedis pulse 2+ Normal; easily identifiable; not easily obliterated 12:01:06 Patient pain scale 0/10 ?. 12:01:15 IV patent on arrival in left forearm with 0.9% NaCl at [facility]. 12:01:20 Lab results completed and on chart. 12:01:24 Right groin area was prepped with chlora-prep and draped in sterile fashion 12::25 Alarms reviewed by R. N. 12::25 Sharps counted by scrub and verified by R.N. 12::27 Physician arrived 12::27 --------ALL STOP TIME OUT------ 12::28 Final Timeout: patient, procedure, and site verified with staff and physician. All members of the team are in agreement. 12:01:30 Left groin site verified by team. 12:01:32 Physical assessment completed. ASA score P 2 - A patient with mild systemic disease as per Jerry Wilson MD. 12:01:36 Sedation plan: IV Moderate Sedation Versed, Fentanyl 12:01:41 Use device set Femoral PCI 12:01:42 Acist Syringe opened to sterile field. 12:01:42 Acist Hand Control opened to sterile field. 12:01:43 Bag Decanter opened to sterile field. 12:01:43 Medline Cath Pack opened to sterile field. 12:01:44 Terumo 6Fr Hobbs Sheath opened to sterile field. 12:01:44 St Jason 260cm J .035 wire opened to sterile field. 12:01:44 Merit BasixCompak Inflation Kit opened to sterile field. 12:01:45 Acist Manifold opened to sterile field. 12:01:45 Tegaderm 4 x 4 opened to sterile field. 12:04:41 Weiner Whisper J 300cm 0.014 guide wire opened to sterile field. 12:04:42 Cordis 6FR XBLAD 3.5 guide catheter opened to sterile field. 12:04:46 Procedure started. 12:06:04 Zero performed for pressure channel P1 12:06:20 Zero performed for pressure channel P1 12:06:36 Baseline sample Acquired. 12:06:42 Zero performed for pressure channel P1 12:08:01 Zero performed for pressure channel P1 12:08:46 Local anesthetic to left femerol artery with Lidocaine 2% by Jerry Wilson MD.INITIAL ACCESS ONLY 12:09:40 A 5 Fr sheath was inserted into the Left Femoral vein 12:10:04 Oxygen 2 l/min NC was administered by Ulises Calix RN; Per physician; 12:10:47 Merit 18G 9cm Percutaneous Entry needle opened to sterile field. 12:10:55 Heparin Flush Bag (1000units/500ml NS) 2 bags added to field was administered by Ulises Calix RN; used for procedure; 12:11:06 0.9% NaCl 100 ml/hr I.V. was administered by Ulises Calix RN; Per physician; 12:11:12 Fentanyl 50 mcg I.V. was administered by Ulises Calix RN; for sedation; 12:11:18 Versed 1 mg I.V. was administered by Ulises Calix RN; for sedation; 12:15:58 [place] Sci Amplatz Super Stiff 75CM guide wire opened to sterile field. 12:16:25 Versed 1 mg I.V. was administered by Ulises Calix RN; for sedation; 12:16:30 A 6 Fr Short sheath was inserted into the Left Femoral artery 12:16:51 6 Fr xblad 3.5 guide catheter was inserted over the wire 12:17:02 Heparin Bolus 4000 units I.V. was administered by Ulises Calix RN; for anticoagulation; 12:17:40 whisper wire advanced. 12:19:18 Wire removed. 12:19:24 [place] Sci PT Graphix J 300cm 0.014 guide wire opened to sterile field. 12:19:38 pt graphix wire advanced. 12:19:44 Wire advanced across lesion. 12:20:11 Inflation Number: 1 A Milton OTW 3.5 x 08 stent was prepped and advanced across the Mid LAD. The stent was deployed at 15 ARMANDO for 0:10 (min:sec). 12:20:32 Stent catheter was removed intact over wire. 12::36 Inflation Number: 1 A Rene OTW 3.5 x 15 stent was prepped and advanced across the Prox LAD. The stent was deployed at 19 ARMANDO for 0:10 (min:sec). 12::47 Inflation number: 2 The stent balloon was then re-inflated across the Prox LAD to 17 ARMANDO for 0:10 (min:sec). 12:22:30 Inflation number: 2 The stent balloon was then re-inflated across the Mid LAD to 7 ARMANDO for 0:10 (min:sec). 12::42 Stent catheter was removed intact over wire. 12::43 Wire removed. 12::43 Guide catheter removed. 12:23:06 Fentanyl 50 mcg I.V. was administered by Ulises Calix RN; for sedation; 12:23:46 Cordis 6Fr Exoseal opened to sterile field. 12:24:07 Sheath removed intact; hemostasis achieved with Exoseal to the Left Femoral artery. 12:24:09 Procedure ended.(Physican Out) 12:24:45 Fluoroscopy time 03.80 minutes. 12:24:55 Fluoroscopy dose: 545 mGy 12:24:55 Flurop Dose total: 545 12:24:59 Contrast amount:Isovue 300 47ml. 12:25:01 Sharps counted by scrub and verified by R.N. 12:25:02 Insertion/operative site no bleeding no hematoma. 12:25:09 Post-op/insertion site Left Femoral artery dressed using a 4 x 4 and Tegaderm. 12:25:13 Post left femerol artery:stable 12:25:15 Post Procedure Pulses reassessed and unchanged 12:25:18 Post procedure rhythm: unchanged. 12:25:30 Sheath removed intact; hemostasis achieved with Manual Compression to the Left Femoral vein. 12:25:35 Estimated blood loss: 5 ml 12:25:36 Post procedure instruction explained to patient.Patient verbalizes understanding. 12:25:37 Patient needs reinforcement of post procedure teaching. 12:25:52 Procedure type changed to Cath procedure, PCI procedure, Coronary Stent Initial, Miscellaneous Procedures, Moderate Sedation up to 30 minutes 12::52 Procedure and supply charges have been captured, reviewed, submitted and are correct. 12::56 Procedure Complication : No complications 12:25:58 Vital chart was stopped 12::58 See physician's report for complete and final results. 12::08 Report given to Pre/Post Procedure Room. 12:26:11 Patient transfered to Pre/Post Procedure Room with Stretcher. 12::13 Procedure ended. 12::13 Full Disclosure recording stopped 12::21 ACC-PCI Only Patient was given prescriptions, or instructed by Jerry Wilson MD to start/continue the following medications upon discharge: Plavix 12::22 End room use (Document Last) Intervention Summary Intervention Notes Time ActionType Lesion and Equipment Action# Pressure Duration Attributes Used 12:20:11 Place stent Mid LAD Rene OTW 1 15 00:10 3.5 x 08 stent 12:21:36 Place stent Prox LAD Milton OTW 1 19 00:10 3.5 x 15 stent 12:21:47 Reinflate Prox LAD Rene OTW 2 17 00:10 stent 3.5 x 15 balloon stent 12:22:30 Reinflate Mid LAD Rene OTW 2 7 00:10 stent 3.5 x 15 balloon stent Device Usage Item Name Manufacture Quantity Catalog Number Hospital Part Current Min imal Lot# / Charge Number Stock Stock Serial# Code Acist Acist 1 [id number] [id number] 870298 [id number] 20 Syringe Medical Systems Inc Acist Hand Acist 1 01646 131669 688392 263385 5 Control Medical Systems Inc Bag Decanter Microtek 1 2002S 514359 59097 041861 5 Medical Inc. Medline Cath Cardinal 1 [id number] 366227 80854 655161 5 [facility] Terumo 6Fr Terumo 1 [id number] 650460 822857 067760 [address] [facility] [address] Jason 1 [id number] 120434 602712 055153 30 260cm J .035 wire Merit Merit 1 YB2018 979308 797012 649962 15 BasixCompak Medical Inflation Kit Acist Acist 1 07632 041361 747176 910653 5 Manifold Medical Systems Inc Tegaderm 4 x 3M 1 1626W 213423 593752 773524 5 4 Weiner Weiner 1 [id number] 243260 382580 546260 5 Whisper J Vascular 300cm 0.014 guide wire Cordis 6FR Cardinal 1 [id number] 029832 629055 544865 10 XBLAD 3.5 Health guide catheter Merit 18G Merit 1 [id number] 203155 945677 459067 5 9cm Medical Percutaneous Entry needle [place] Sci Culpeper 1 [id number] 503888 445839 704258 5 [id number] Amplatz Scientific Super Stiff 75CM guide wire [place] [employer] [place]per 1 [id number] 611474 063703 674876 5 [id number] PT Graphix J Scientific 300cm 0.014 guide wire Rene OTW 3.5 Medtronic 1 [id number] 442977 4349118 100665 5 [id number] x 08 stent Rene OTW 3.5 Medtronic 1 [id number] 855884 1624280 728284 5 [id number] x 15 stent Cordis 6Fr Cardinal 1 EX600 731776 457985 883934 10 [facility] Signature Audit [place] Stage Time Signature Unsigned Intra-Procedure 12/25/2016 Cyn Grider 12:27:43 PM RT(R) Signatures Monitor : Cyn Grider RT Signature : Date : Time : [place] [id number] [place] [address]
[~2016-12-25 07:47] MED LIST changes: +BAYER CHEWABLE81 MG PO; +PLAVIX75 MG PO
[2016-12-25 08:30] VITALS: BP 149/85; Ht 170.2 cm; Wt 102.3 kg
[2016-12-25 08:31] LABS: BASOPHILS 0.5 % (0-2); HEMATOCRIT 38.5 % (42.0-54.0); HEMOGLOBIN 13.6 g/dL (13.5-17.5); IMMATURE GRANULOCYTES 0.3 % (0-5); MCH 31.3 pg (26.0-34.0); MCHC 35.3 g/dL (31.0-37.0); MCV 88.7 fL (80.0-100.0); MONOCYTES 7.5 % (2-11); NEUTROPHILS 56.7 % (40-80); PLATELET COUNT 181 10x3/uL (130-400); RBC 4.34 10x6/uL (4.20-6.10); RDW 13.6 % (11.5-14.5); WBC 7.3 10x3/uL (4.8-10.8)
[2016-12-25 08:40] LABS: CALC OSMOLALITY 278 mosm/kg (275-300); CALCIUM 9.4 mg/dL (8.5-10.1); CHLORIDE - SERUM 104 mmol/L (98-107); GLUCOSE 116 mg/dL (74-106); POTASSIUM - SERUM 3.7 mmol/L (3.5-5.1); SODIUM 140 mmol/L (136-145); UREA NITROGEN 10 mg/dL (7-18); eGFR NON AFRICAN AMERICAN 78 mL/min (90-120)
--- NOTE | 2016-12-25 12:50 | NUR ---
2L NC, NO RESP DISTRESS. LEFT GROIN 6F EXOSEAL CDI, NO BLEEDING OR HEMATOMA NOTED. NO C/O PAIN OR NAUSEA. VSS. FAMILY AT BEDSIDE, CALL LIGHT WITHIN REACH.
--- NOTE | 2016-12-25 13:20 | NUR ---
LEFT GROIN 6F EXOSEAL CDI, NO BLEEDING OR HEMATOMA NOTED. 2L NC, NO RESP DISTRESS NOTED. DENIES ANY PAIN AT THIS TIME. SANDWICH TRAY AND DRINK GIVEN, NO C/O NAUSEA. VSS. WILL CONTINUE TO MONITOR.
--- NOTE | 2016-12-25 13:35 | NUR ---
LEFT GROIN 6F EXOSEAL CDI, NO BLEEDING OR HEMATOMA NOTED. 2L NC, NO RESP DISTRESS. NO C/O PAIN OR NAUSEA. VSS. FAMILY AT BEDSIDE, CALL LIGHT WITHIN REACH.
--- NOTE | 2016-12-25 14:35 | NUR ---
RESTING QUEITLY WITH EYES CLOSED. LEFT GROIN 6F EXOSEAL CDI, NO BLEEDING OR HEMATOMA NOTED. 2L NC, NO RESP DISTRESS. VSS. NO C/O AT THIS TIME. FAMILY AT BEDSIDE. WILL CONTINUE TO MONITOR. CLOSELY.
--- NOTE | 2016-12-25 15:47 | NUR ---
PT DENIES ANY C/O. NO BLEEDING OR HEMATOMA NOTED AT CATH SITE. PEDAL PULSES PALPABLE. AT BEDSIDE, CALL LIGHT IN REACH. DENIES NEEDS AT THIS TIME.
--- NOTE | 2016-12-25 16:00 | NUR ---
1600 HOB ELEVATED. DRESSING TO RIGHT GROINIS CDI, AREA IS SOFT AND NONTENDER. PEDAL PULSES PALPABLE. PT DENIES ANY C/O.
--- NOTE | 2016-12-25 16:30 | NUR ---
1630 IV HAS BEEN DC'D WITH CATH INTACT. PT DRESSING FOR DC TO HOME. DRESSING TO LEFT GROIN REMAINS CDI, AREA SOFT AND NONTENDER. DC INSTRUCTIONS REVIEWED WITH PT AND WHO VERBALIZE UNDERSTANDING.
--- NOTE | 2016-12-25 16:45 | NUR ---
1645 PT HAS AMBULATED TO THE BATHROOM AND VOIDED QS. DENIES ANY C/O. DRESSING REMAINS INTACT WITH NO BLEEDING OR HEMATOMA NOTED. PT ESCORTED TO PRIVATE AUTO VIA WC BY NURSE WITH DRIVING HIM HOME.
--- NOTE | 2016-12-29 14:14 | OP ---
PATIENT NAME: JOSE FERREIRA MEDICAL RECORD: [id number] :47 LOCATION:D.CAT ADMISSION DATE: SURGEON: JUAN M REYNAGA MD DATE OF OPERATION: 12/25/2016 PROCEDURES: 1. PTCA stent to LAD. 2. Selective coronary angiography. INDICATION: Angina and coronary artery disease. PROCEDURE IN DETAIL: After informed consent was obtained and after a detailed explanation of risks, benefits as well as alternative therapies, the patient elected to proceed with angiogram and angioplasty. The left femoral area was prepped and draped in normal sterile fashion. Left femoral artery was cannulated via modified Seldinger technique with placement of 6-Armenian sheath. All catheters exchanged through this sheath. FINDINGS: The left anterior descending has 80+ percent stenosis, was addressed with a 3.5 x 15 and 3.5 x 8 both [place] stents. Result was 0% residual stenosis. OVERALL IMPRESSION: Successful percutaneous transluminal coronary angioplasty stent of the left anterior descending going from 80% initial stenosis to 0% residual stenosis. TRANSINT:[id number] Voice Confirmation ID: [id number] DOCUMENT ID: [id number] JUAN M REYNAGA MD at 1414 CC: [id number] DICTATION DATE: 12/25/16 1227 TRANSFORMER REPAIRER: 12/25/16 1237 [facility] CLI 12/25/[address] [address]
--- NOTE | 2016-12-29 14:14 | HP ---
PATIENT: JOSE FERREIRA MEDICAL RECORD: [id number] ACCOUNT: [id number] LOCATION:[facility] : 47 ADMISSION DATE: 12/25/16 HISTORY AND PHYSICAL EXAMINATION DIAGNOSES: 1. Angina. 2. Coronary artery disease. 3. Aortic stenosis. 4. Hypertension. 5. Hyperlipidemia. HISTORY OF PRESENT ILLNESS: This is a gentleman who presents with anginal symptomatology as well as shortness of breath. He is found to have severe aortic stenosis; however, was deemed a better candidate for TAVR. He as well had severe coronary artery disease, underwent PTCA stent of the left circumflex last week. Now, he is brought back for PTCA stent of the LAD. PHYSICAL EXAMINATION: GENERAL APPEARANCE: Well-nourished, well-developed, appears stated age. Level of distress, comfortable. PSYCHIATRIC: Mental status, alert, normal affect. Orientation, oriented to time, place and person. EYES: Lids and conjunctiva, noninjected. No discharge, no pallor. ENT: Lips, teeth, gums, normal dentition. Oropharynx, no cyanosis, no pallor. NECK: Carotid arteries, bilateral normal upstroke, no bruits, no thrills. JUGULAR VEINS: No jugular venous pressure or distention. CERVICAL LYMPH NODES: Nontender, nonenlarged. THYROID: Not enlarged. Nontender. No nodules. LUNGS: Respiratory effort, unlabored. CHEST: Normal curvature. No thoracic deformity. No chest wall tenderness. Percussion, resonant. Auscultation, clear. No wheezes, no rales, no rhonchi. CARDIOVASCULAR: Precordial exam, nondisplaced. No heaves or pericardial thrills. Rate and rhythm, regular. Heart sounds, normal S1, normal S2. No S3, no gallop, no rub. Systolic murmur, not heard. Diastolic murmur, not heard. EXTREMITIES: No cyanosis, no edema. Peripheral pulses, full and equal in all extremities, except as noted. No bruits appreciated. ABDOMEN: Soft, nondistended. Normal aorta. No bruit. Nontender. No masses. Liver, nontender, no hepatomegaly. Spleen, nontender, no splenomegaly. MUSCULOSKELETAL: No joint tenderness. No joint swelling. No erythema. NEUROLOGICAL: Normal gait, normal strength, normal tone. SKIN: Warm and dry. REVIEW OF SYSTEMS: The patient reports easy bruising but reports no swollen glands. The patient reports no fever, no night sweats, no significant weight gain, no significant weight loss. No significant exercise tolerance. The patient reports no dry eyes, no irritation, no vision change. Patient reports no difficulty hearing and no ear pain. Patient reports no frequent nose bleeds or nose and sinus problems. Patient reports on arm pain on exertion. No shortness of breath while lying down. No history of heart murmur. Patient reports no cough, no wheezing or coughing up blood. Patient reports no abdominal pain, no vomiting. Normal appetite. No diarrhea and not vomiting blood. No nausea and no constipation. Patient reports no incontinence. No difficulty urinating. No hematuria. No increased frequency. Patient reports no muscle aches. No weakness, no arthralgias, no back pain. No swelling of the HISTORY AND PHYSICAL [id number] JOSE FERREIRA extremities. Patient reports no abnormal mole, no jaundice, no rashes. Reports no loss of consciousness. No weakness and no numbness. No seizures, dizziness, or headaches. The patient reports no depression, no sleep disturbance, feeling safe in a relationship and no alcohol abuse. Patient reports on fatigue. Reports no runny nose or sinus pressure. No itching, no hives, and no frequent sneezing. OVERALL IMPRESSION: Anginal symptomatology with significant disease of the LAD. We will proceed with transcatheter revascularization of the LAD. TRANSINT:[id number] Voice Confirmation ID: [id number] DOCUMENT ID: [id number] JUAN M REYNAGA MD at 1414 CC: [id number] DICTATION DATE: 12/25/16 1012 NIGHT SUPERVISOR: 12/25/16 1032 DEP CLI 12/25/16 [facility] [address] [id number]
== END 2016-12-25 16:45 | disposition home or self-care (01) ==
LOC: D.CATH 07:47
PROVIDERS: Internal Medicine Interventional Cardiology
DX: I25.119 Atherosclerotic heart disease of native coronary artery with unspecified angina pectoris (principal); I10 Essential (primary) hypertension; E78.5 Hyperlipidemia, unspecified; Z01.812 Encounter for preprocedural laboratory examination

== ENCOUNTER 2018-02-11 21:53 | Outpatient (CLI) | payer MEDICARE, OTHER ==
[~2018-02-11] VITALS: Ht 170.2 cm; Wt 100.0 kg
--- NOTE | ~2018-02-11 | HEMODYNAMI ---
PATIENT:JOSE FERREIRA MEDICAL RECORD: [id number] : 47 LOCATION:[facility] D.2120 ADMISSION DATE: 02/11/18 Generatedon:02/12/20189:44 Patient name: JOSE FERREIRA Patient #: [id number] SSN: : 1945 Date of study: 02/12/2018 Page: Of Hemodynamic Procedure Report Patient Data Patient Demographics Procedure consent was obtained First Name: JOSE Gender: Male Last Name: HANNA : 1945 [facility] Initial: TERESA Age: 72 year(s) Patient #: [id number] Race: Unknown Additional ID: [id number] Contact details [address]: [address] [place] [address] State: [place] City: [place] Zip code: [address] Past Medical History Allergies Allergen Reaction Date Comments Reported Other allergy 12/18/2016 niacin Other allergy 12/22/2016 Niacin Other allergy 12/25/2016 niacin Admission Admission Data Admission Date: 02/11/2018 Admission Time: 21:53 Room #: D.2120 Procedure Procedure Types Cath Procedure Diagnostic Procedure LHC Coronaries only Aortic Root Angiography Procedure Description Procedure Date Procedure Date: 02/12/2018 Procedure Start Time: 9:31 Procedure End Time: 9:44 Procedure Staff Name Function Hola Boyer MD Performing Physician Jed Joseph RT Monitor Patrh Gong RN Nurse Laura Lebron RT Scrub Procedure Data Cath Procedure Fluoroscopy Diagnostic fluoroscopy Total fluoroscopy Time: 1.3 time: 1.3 min min Diagnostic fluoroscopy Total fluoroscopy dose: 660 dose: 660 mGy mGy Contrast Material Contrast Material Type Amount (ml) Isovue 300 60 Entry Location Entry Primary Successful Side Size Upsize Upsize Entry Closure Succes sful Closure Location (Fr) 1 (Fr) 2 (Fr) Remarks Device Remarks Femoral Left 5 Fr Exoseal artery Estimated blood loss: 10 ml Diagnostic catheters Device Type Used For End Catheter Placement MULTIPACK JL 4.0 5Fr Procedure catheter MULTIPACK 3DRC 5Fr Procedure catheter MULTIPACK Pigtail 5 Fr Procedure catheter Procedure Complications No complications Procedure Medications Medication Administration Route Dosage Benadryl I.V. 50 mg Oxygen etCO2 Nasal cannula 2 l/min Lidocaine 2% added to field 20 Heparin Flush Bag added to field 2 bags (1000units/500ml NS) 0.9% NaCl I.V. 100 ml/hr Versed I.V. 1 mg Fentanyl I.V. 50 mcg Versed I.V. 1 mg Fentanyl I.V. 50 mcg Hemodynamics Rest Heart Rate: 90 (bpm) Snapshots Pre Cath Intra NCS Post Cath Vital Signs Time Heart Resp SPO2 etCO2 NIBP (mmHg) Rhythm Pain Sedation Rate (ipm) (%) (mmHg) Status Level (bpm) 9:22:13 88 16 95 0 159/103(127) NSR 0 (11) 10(A) , No pain 9:26:39 85 14 94 25.7 142/82(101) NSR 0 (11) 10(A) , No pain 9:30:59 93 13 94 0 130/78(112) NSR 0 (11) 9(A) , No pain 9:35:16 91 12 93 0 134/77(116) NSR 0 (11) 9(A) , No pain 9:39:21 93 12 92 0 127/92(107) NSR 0 (11) 10(A) , No pain 9:43:39 89 12 92 27.9 130/70(98) NSR 0 (11) 10(A) , No pain Medications Time Medication Route Dose Verified Delivered Reason Notes Effec tiveness by by 9:25:01 Benadryl I.V. 50 mg Hola Alba used for [facility] Myke Gong RN procedure 9:25:18 Oxygen etCO2 2 Hola Vuie used for Nasal l/min [facility] Myke Gong library circulation technician cannula 9:25:30 Lidocaine 2% added 20ml Hola Vuie used for to vial [facility] Myke Gong library circulation technician field [place] 9:25:39 Heparin Flush added 2 Hola Hola used for Bag to bags St Myke Boyer procedure (1000units/500ml field MD [place]HE[place] NS) 9:25:47 0.9% NaCl I.V. 100 Hola Vuie Per ml/hr [facility] Myke Gong RN physician 9:25:54 Versed I.V. 1 mg Hoal Vuie for [facility] Myke Gong RN sedation 9:26:00 Fentanyl I.V. 50 Hola felix [facility] [place] [facility] Myke Gong RN sedation 9:33:02 Versed I.V. 1 mg Hola Hodge RN sedation 9:33:06 Fentanyl I.V. 50 Hola Hodge RN sedation Procedure Log Time Note 8:59:16 Jed Opal RT(R) sent for patient. Start room use. 8:59:17 Time tracking: Regular hours (M-F 7:00 - 5:00) 8:59:23 Plan of Care:Hemodynamics will remain stable., Cardiac rhythm will remain stable., Comfort level will be maintained., Respiratory function will remain adequate., Patient/ family verbilizes understanding of procedure., Procedure tolerated without complication., Recovers from procedure without complications.. 9:13:21 Patient received from Med II to CCL 1 Alert and oriented. Tansferred to table in Supine position. 9:13:22 Warm blankets applied, and cesar hugger turned on for patient comfort. 9:13:23 Correct patient and procedure confirmed by team. 9:13:24 Signed procedure consent form obtained from patient. 9:13:24 ECG and BP/O2 sat monitors applied to patient. 9:20:59 Vital chart was started 9:21:04 Baseline sample Acquired. 9:21:15 Rhythm: sinus rhythm 9:21:17 Full Disclosure recording started 9:21:21 H&P Date Dictated: 02/12/2018 Within 30 days and on chart.. 9:21:25 Pre-procedure instructions explained to patient. 9:21:26 Pre-op teaching completed and patient verbalized understanding. 9:21:28 Family in patients room. 9:21:29 Patient NPO since Midnight. 9:21:32 Is the patient allergic to Iodine/contrast media? No. 9:21:34 Is patient on blood thinner?Yes 9:21:37 ACC The patient was administered the following blood thiners within the last 24 hours: ACCPlavix 9:21:39 Patient diabetic? No. 9:21:42 Previous problem with sedation/anesthesia? No ? 9:21:43 Snore? Yes 9:21:44 Sleep apnea? Yes 9:21:45 Deviated septum? No 9:21:46 Opens mouth fully? Yes 9:21:46 Sticks out tongue? Yes 9:21:48 Airway obstruction? No ? 9:21:50 Dentures? No ? 9::52 Pre procedure: left dorsailis pedis pulse 1+ Palpable, but thready & weak; easily obliterated 9:22:42 GOING LEFT GROIN DUE TO RECENT PROCEDURE ON THE RIGHT GROIN. 9:22:47 Patient pain scale 0/10 ?. 9::52 IV patent on arrival in right forearm with 0.9% NaCl at [facility]. 9::54 Lab results completed and on chart. 9::57 Left groin area was prepped with chlora-prep and draped in sterile fashion 9::58 Alarms reviewed by R. N. 9::59 Sharps counted by scrub and verified by R.N. 9::00 --------ALL STOP TIME OUT------ :: Final Timeout: patient, procedure, and site verified with staff and physician. All members of the team are in agreement. 9:23:03 Left groin site verified by team. 9:23:06 Physical assessment completed. ASA score P 2 - A patient with mild systemic disease as per Hola Boyer MD. 9:23:09 Sedation plan: IV Moderate Sedation Medication:Versed, Fentanyl 9:25:01 Benadryl 50 mg I.V. was administered by Parth Gong RN; used for procedure; 9:25:18 Oxygen 2 l/min etCO2 Nasal cannula was administered by Parth Gong RN; used for procedure; ::30 Lidocaine 2% 20ml vial added to field was administered by Parth Gong RN; used for procedure; ::39 Heparin Flush Bag (1000units/500ml NS) 2 bags added to field was administered by Hola Boyer MD; used for procedure; :: 0.9% NaCl 100 ml/hr I.V. was administered by Parth Gong RN; Per physician; :: Versed 1 mg I.V. was administered by Parth Gong RN; for sedation; 9:26:00 Fentanyl 50 mcg I.V. was administered by Parth Gong RN; for sedation; ::39 Use device set Femoral Dx 9:30:41 Tegaderm 4 x 4 (1626W) opened to sterile field. 9:30:42 ACIST Manifold (97776) opened to sterile field. 9:30:47 ACIST Hand Control (86338) opened to sterile field. 9:30:48 ACIST Syringe (59459) opened to sterile field. 9:30:49 Bag Decanter (2002S) opened to sterile field. 9:30:49 Medline Cath Pack ([id number]) opened to sterile field. 9:30:50 DIAGNOSTIC WIRE .035 260cm J wire (626507) opened to sterile field. 9:30:51 DIAGNOSTIC Multipack 5Fr catheter set (QO6563) opened to sterile field. 9:30:52 SHEATH 5FR Burlison (VII294) opened to sterile field. 9:30:59 Procedure started. 9:31:04 Local anesthetic to left femerol artery with Lidocaine 2% by Hola Boyer MD.INITIAL ACCESS ONLY 9:32:07 A 5 Fr sheath was inserted into the Left Femoral artery 9:32:12 A MULTIPACK JL 4.0 5Fr catheter was advanced over the wire and used for Procedure. 9:32:37 LCA angiography performed. 9:32:38 Catheter removed. 9:33:02 Versed 1 mg I.V. was administered by Parth Gong RN; for sedation; 9:33:06 Fentanyl 50 mcg I.V. was administered by Parth Gong RN; for sedation; 9:34:52 A MULTIPACK 3DRC 5Fr catheter was advanced over the wire and used for Procedure. 9:35:45 RCA angiography performed. 9:35:56 Catheter removed. 9:36:09 A MULTIPACK Pigtail 5 Fr catheter was advanced over the wire and used for Procedure. 9:36:12 Aortic Root visualized 9:36:15 Injector settings: Ml/sec: 10, Volume: 20, 9:36:24 Catheter removed. 9:36:32 EXOSEAL 5Fr (EX500) opened to sterile field. 9:36:47 Sheath removed intact; hemostasis achieved with Exoseal to the Left Femoral artery. 9:36:49 Procedure ended.(Physican Out) 9:37:18 Fluoroscopy time 01.30 minutes. 9:37:21 Fluoroscopy dose: 660 mGy 9:37:21 Flurop Dose total: 660 9:37:26 Contrast amount:Isovue 300 60ml. 9:37:27 Sharps counted by scrub and verified by R.N. 9:37:29 Insertion/operative site no bleeding no hematoma. 9:37:32 Post-op/insertion site Left Femoral artery dressed using a 4 x 4 and Tegaderm. 9:37:34 Post Procedure Pulses reassessed and unchanged 9:37:37 Post-procedure physical assessment completed. ASA score P 2 - A patient with mild systemic disease as per Hloa Boyer MD. 9:37:40 Post procedure rhythm: unchanged. 9:37:44 Estimated blood loss: 10 ml 9:37:45 Post procedure instruction explained to patient.Patient verbalizes understanding. 9:37:46 Patient needs reinforcement of post procedure teaching. 9:37:59 Procedure type changed to Cath procedure, Diagnostic procedure, LHC, Coronaries only, Aortic Root Angiography 9:38:00 Procedure and supply charges have been captured, reviewed, submitted and are correct. 9:38:03 Procedure Complication : No complications 9:44:08 Vital chart was stopped 9:44:09 See physician's report for complete and final results. 9:44:18 Report given to PCU. 9:44:22 Patient transfered to PCU with Bed. 9:44:24 Procedure ended. 9:44:24 Full Disclosure recording stopped 9:44:28 End room use (Document Last) Device Usage Item Name Manufacture Quantity Catalog Hospital Part Current Minimal L ot# / Number Charge Number Stock Stock Serial# Code Tegaderm 4 3M 1 1626W [id number] [id number] 205491 5 x 4 (1626W) ACIST Acist 1 33875 363052 508445 883474 5 Manifold Medical (52258) Systems Inc ACIST Hand Acist 1 06891 437181 884311 846985 5 Control Medical (86470) Systems Inc ACIST Acist 1 98861 600119 005838 135864 20 Syringe Medical (61727) Systems Inc Bag Microtek 1 076434 75832 890688 5 Decanter Medical Inc. () Medline Medline 1 [id number] 692644 74799 496077 5 Cath Pack ([id number]) DIAGNOSTIC St Jason 1 847512 439405 521709 049821 30 WIRE .035 260cm J wire (891361) DIAGNOSTIC Cardinal 1 BM1178 886711 01894 080236 30 Multipack Health 5Fr catheter set (PU2320) SHEATH 5FR Terumo 1 VOA559 503605 596073 993445 5 Burlison (DLL235) MULTIPACK Cardinal 1 817249 5 JL 4.0 5Fr Health catheter MULTIPACK Cardinal 1 141725 5 3DRC 5Fr Health catheter MULTIPACK Cardinal 1 922879 5 Pigtail 5 Health Fr catheter EXOSEAL 5Fr Cardinal 1 EX500 606635 382789 988500 10 (EX500) Health Signature Audit [place] Stage Time Signature Unsigned Intra-Procedure 02/12/2018 Jed Joseph 9:44:41 AM RT(R) Signatures Monitor : Jed Joseph RT Signature : Date : Time : [address] [place] [address]
[2018-02-11] MEDS ORDERED: FLOMAX0.4 MG PO (21:59)
[2018-02-11] MEDS ORDERED: PROSCAR5 MG PO (21:59)
[2018-02-11] MEDS ORDERED: RANITIDINE HCL150 M1 PO (22:01)
[2018-02-11 22:32] LABS: BASOPHILS 0.1 % (0-2); EOSINOPHILS 0.6 % (0-7); HEMATOCRIT 40.2 % (42.0-54.0); HEMOGLOBIN 14.2 g/dL (13.5-17.5); IMMATURE GRANULOCYTES 0.2 % (0-5); LYMPHOCYTES 8.2 % (15-50); MCH 31.2 pg (26.0-34.0); MCHC 35.3 g/dL (31.0-37.0); MCV 88.4 fL (80.0-100.0); MEAN PLATELET VOLUME 8.6 fL (7.4-10.4); MONOCYTES 3.5 % (2-11); NEUTROPHILS 87.4 % (40-80); PLATELET COUNT 199 10x3/uL (130-400); RBC 4.55 10x6/uL (4.20-6.10); RDW 13.1 % (11.5-14.5)
[2018-02-11 22:45] LABS: ALBUMIN 4.1 g/dL (3.4-5.0); ALKALINE PHOSPHATASE 91 U/L (46-116); ALT (SGPT) 41 U/L (10-68); BILIRUBIN - TOTAL 0.59 mg/dL (0.2-1.3); CALC OSMOLALITY 276 mosm/kg (275-300); CALCIUM 9.2 mg/dL (8.5-10.1); CARBON DIOXIDE 23.2 mmol/L (21.0-32.0); CHLORIDE - SERUM 102 mmol/L (98-107); CREATININE - SERUM 0.9 mg/dL (0.6-1.3); GLUCOSE 134 mg/dL (74-106); POTASSIUM - SERUM 3.9 mmol/L (3.5-5.1); PROTEIN - SERUM 8.1 g/dL (6.4-8.2); SODIUM 138 mmol/L (136-145); UREA NITROGEN 11 mg/dL (7-18); eGFR NON AFRICAN AMERICAN 88 mL/min (90-120)
[2018-02-11 22:54] LABS: CKMB 1.4 U/L (0.0-3.6); CREATINE KINASE 170 UL (21-232); MAGNESIUM - SERUM 1.8 mg/dL (1.8-2.4); TROPONIN-I 0.042 ng/mL (0.000-0.060)
[2018-02-11 22:57] LABS: APTT 34.3 SECONDS (22.8-39.4); INR 1.07 (0.85-1.17); PROTIME 13.4 SECONDS (11.6-15.0)
[2018-02-12] VITALS: BP 157/83
[2018-02-12 00:47] VITALS: Ht 170.2 cm; Wt 100.0 kg
[2018-02-12 04:00] VITALS: BP 150/58
[2018-02-12 07:26] LABS: CKMB 1.2 U/L (0.0-3.6); CREATINE KINASE 120 UL (21-232); TROPONIN-I 0.039 ng/mL (0.000-0.060)
[2018-02-12 07:36] VITALS: BP 118/75
[2018-02-12 08:46] LABS: BASOPHILS 0.2 % (0-2); EOSINOPHILS 1.2 % (0-7); HEMATOCRIT 41.1 % (42.0-54.0); IMMATURE GRANULOCYTES 0.2 % (0-5); LYMPHOCYTES 8.5 % (15-50); MCH 31.1 pg (26.0-34.0); MCHC 34.1 g/dL (31.0-37.0); MONOCYTES 3.9 % (2-11); PLATELET COUNT 212 10x3/uL (130-400); RDW 13.6 % (11.5-14.5); WBC 12.7 10x3/uL (4.8-10.8)
[2018-02-12 08:49] LABS: CALC OSMOLALITY 276 mosm/kg (275-300); CALCIUM 8.6 mg/dL (8.5-10.1); CARBON DIOXIDE 23.6 mmol/L (21.0-32.0); CHLORIDE - SERUM 103 mmol/L (98-107); CREATININE - SERUM 0.9 mg/dL (0.6-1.3); GLUCOSE 100 mg/dL (74-106); MCV 91.3 fL (80.0-100.0); POTASSIUM - SERUM 3.7 mmol/L (3.5-5.1); SODIUM 139 mmol/L (136-145); UREA NITROGEN 10 mg/dL (7-18); eGFR NON AFRICAN AMERICAN 88 mL/min (90-120)
[2018-02-12 11:12] VITALS: BP 106/65
--- NOTE | 2018-02-14 13:57 | HP ---
PATIENT: JOSE FERREIRA MEDICAL RECORD: [id number] ACCOUNT: [id number] LOCATION:[facility] : 47 ADMISSION DATE: 02/11/18 PCP: CLINTON JOSÉ HISTORY AND PHYSICAL EXAMINATION HISTORY OF PRESENT ILLNESS: A 72-year-old gentleman known to our office with a history of coronary artery disease as well as aortic valve disease, status post percutaneous revascularization as well as TAVR, admitted with typical anginal symptomology, borderline cardiac enzymes, chest tightness and pressure with exertion. He was admitted for further evaluation. PAST MEDICAL HISTORY: Includes; 1. History of hypertension. 2. Hyperlipidemia. 3. Coronary artery disease as described above. 4. Aortic valve disease, status post TAVR. 5. BPH. MEDICATIONS: Include ranitidine 150 at bedtime, Proscar 5 mg p.o. daily, aspirin 81 every day, amlodipine 5 every day, simvastatin 40 every day, metoprolol 12.5 b.i.d., isosorbide 30 every day, Plavix 75 every day, Flomax 0.4 every day. SOCIAL HISTORY: . Nonsmoker and nondrinker. He is able to take care of all his ADLs. He does try to walk occasionally. REVIEW OF SYSTEMS: The patient reports easy bruising but reports no swollen glands. The patient reports no fever, no night sweats, no significant weight gain, no significant weight loss. No significant exercise tolerance. The patient reports no dry eyes, no irritation, no vision change. Patient reports no difficulty hearing and no ear pain. Patient reports no frequent nose bleeds or nose and sinus problems. Patient reports on arm pain on exertion. No shortness of breath while lying down. No history of heart murmur. Patient reports no cough, no wheezing or coughing up blood. Patient reports no abdominal pain, no vomiting. Normal appetite. No diarrhea and not vomiting blood. No nausea and no constipation. Patient reports no incontinence. No difficulty urinating. No hematuria. No increased frequency. Patient reports no muscle aches. No weakness, no arthralgias, no back pain. No swelling of the extremities. Patient reports no abnormal mole, no jaundice, no rashes. Reports no loss of consciousness. No weakness and no numbness. No seizures, dizziness, or headaches. The patient reports no depression, no sleep disturbance, feeling safe in a relationship and no alcohol abuse. Patient reports on fatigue. Reports no runny nose or sinus pressure. No itching, no hives, and no frequent sneezing. PHYSICAL EXAMINATION: GENERAL: Pleasant gentleman, in no acute distress, appears stated age. VITAL SIGNS: Blood pressure 118/75, pulse 88 and regular. HEENT: Normocephalic, atraumatic. NECK: No bruits noted. HEART: Regular. A II/ systolic ejection murmur. I do not hear any diastolic component. LUNGS: Good air excursion. ABDOMEN: Soft, nontender. EXTREMITIES: Pulses well preserved, 2+, with no edema. HISTORY AND PHYSICAL [id number] JOSE FERREIRA DIAGNOSTIC DATA: ECG shows left bundle-branch block, secondary ST-T changes. IMPRESSION: Worsening angina. PLAN: We will plan for angiography, intervention based on above. TRANSINT:[id number] Voice Confirmation ID: [id number] DOCUMENT ID: [id number] INGRID TURCIOS MD at 1357 CC: [id number] DICTATION DATE: 02/12/1845 UPFITTER: 02/12/18 1231 DEP CLI 02/12/18 [facility] [address] [place] [address]
--- NOTE | 2018-02-14 13:57 | OP ---
PATIENT NAME: JOSE FERREIRA MEDICAL RECORD: [id number] :47 LOCATION:[facility] ADMISSION DATE: SURGEON: INGRID TURCIOS MD DATE OF OPERATION: 02/12/2018 PROCEDURES: Left heart catheterization, selective coronary angiography, left femoral artery approach. CATHETERS: A 5-Portuguese sheath, 5/4 left and right Naida, 5/4 pig. The procedure was well tolerated. The patient returned to the [facility]. Sheath was removed. ExoSeal device placed. FINDINGS: Left ventriculography not performed. Aortic root injection was performed to assess for any significant AI given recent TAVR and this shows trivial AI with normal-appearing aortic root. CORONARY ANATOMY: LEFT MAIN: Left main is free of disease. LAD: Area of previous stenting is widely patent. Very distal in the LAD right at the apex, there is about 80% stenosis. A small-sized diagonal is noted with about 70% stenosis. CIRCUMFLEX: Free of disease. 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 IMPRESSION: Non-interventional disease here. Well-functioning aortic valve replaced via TAVR. We will include long-acting nitrates at this point. 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
== END 2018-02-12 12:53 | disposition home or self-care (01) ==
LOC: D.OPS 21:53 → D.ER 21:53 → EDSTATUS 23:33 → D.M2 23:41 → D.OPS 02-12 12:53
PROVIDERS: Emergency Medicine; Internal Medicine Interventional Cardiology
DX: I25.119 Atherosclerotic heart disease of native coronary artery with unspecified angina pectoris (principal); I10 Essential (primary) hypertension; E78.5 Hyperlipidemia, unspecified; N40.0 Benign prostatic hyperplasia without lower urinary tract symptoms; Z95.2 Presence of prosthetic heart valve; Z01.812 Encounter for preprocedural laboratory examination